=== PATIENT | male | born 1990 | race Caucasian/White ===

== ENCOUNTER 2017-07-12 17:58 | Emergency (ER) | payer SELFPAY ==
[2017-07-12 18:13] VITALS: BP 150/64
[2017-07-12 18:23] LABS: BASOPHILS % 0.7 (0.0-1.5); EOSINOPHILS % 1.4 % (0.0-6.8); MEAN CORPUSCULAR HEMOGLOBIN 28.2 pg (28.0-34.0); MEAN CORPUSCULAR VOLUME 86.7 fl (80.0-100.0); MONOCYTES % 5.1 % (0.0-11.0); NEUTROPHILS # 5.9 # k/uL (1.4-7.7)
[2017-07-12 18:32] LABS: eGFR (African) > 60; eGFR (Non-African) > 60
[2017-07-12] MEDS ORDERED: GUAIFENESIN/CODEINE 10 ML S/F LIQUID DOSE CUP PO ONE (19:31)
--- NOTE | 2017-07-12 19:31 | Diagnostic Imaging Report ---
ANA HUTTON ([place]) - ER [facility] [address] [facility].[address] [address] Report Submission Date: Jul 12, 2017 7:21:53 PM SECURITY NURSE Patient Study Name: MONROE DUKES Date: Jul 12, 2017 6:31:46 PM SECURITY NURSE Modality Type: CR Gender: M Description: CHEST : 89 Institution: [facility] Physician: ANA HUTTON) - ER Chest, PA and lateral History: Cough Findings: The heart, lungs, pleura, mediastinum and bony thorax are normal. Impression: Normal. Electronically signed on Jul 12, 2017 7:21:53 PM SECURITY NURSE by: Nahum PATRICK
--- NOTE | 2017-07-12 19:35 | ED Physician Documentation ---
Upper Respiratory Symptoms - HISTORIAN Historian: patient - HPI Stated Complaint: Cough Chief Complaint: Cough/ Upper Respiratory Further Comments: yes (26 year old male patient presents with complaint of cough since January. States he moved into a trailer with black mold. states the coughing has become worse the past few weeks.) - ROS CONST/EYES: weakness CVS/RESP: none. denies: chest pain, shortness of breath, palpitations LYMPH: denies: leg swelling, rash, swollen glands, ankle swelling, other GI/: none NEURO/PSYCH: denies: fainting, dizziness MS/SKIN: denies: joint pain, rash - PAST HX Lung Disease: none PE Risk Factors: none Allergies/Adverse Reactions: Allergies Allergy/AdvReac Type Severity Reaction Status Date / Time No Known Drug Allergies Allergy Verified 07/12/17 19:48 Home Medications: Ambulatory Orders Medication Instructions Recorded Benzonatate [Tessalon Perles] 200 mg PO TID PRN #42 capsule 07/12/17 - SOCIAL HX Smoking History: cigarettes - FAMILY HX Family History: denies: none - VITAL SIGNS Vital Signs: Vital Signs Temp Pulse Resp BP Pulse Ox 97.4 F L 98 H 18 150/64 99 07/12/17 17:58 07/12/17 19:52 07/12/17 19:52 07/12/17 19:52 07/12/17 17:58 - REVIEWED ASSESSMENTS Nursing Assessment Reviewed: Yes Vitals Reviewed: Yes ED Results Lab/Radiology - Lab Results Lab Results: Lab Results 07/12/17 07/12/17 18:15 18:15 WBC 8.70 K/ul K/ul (4.00-12.00) RBC 5.21 M/ul H M/ul (3.90-5.20) Hgb 14.7 g/dL g/dL (12.0-18.0) Hct 45.2 % % (37.0-53.0) MCV 86.7 fl fl (80.0-100.0) MCH 28.2 pg pg (28.0-34.0) MCHC 32.5 g/dL g/dL (30.0-36.0) RDW 13.0 % % (11.3-14.3) Plt Count 203 K/mm3 K/mm3 (130-400) Neut % (Auto) 68.1 % % (39.0-79.0) Lymph % (Auto) 23.6 % % (16.0-50.0) Emanuel % (Auto) 5.1 % % (0.0-11.0) Eos % (Auto) 1.4 % % (0.0-6.8) Baso % (Auto) 0.7 (0.0-1.5) Neut # (Auto) 5.9 # k/uL # k/uL (1.4-7.7) Lymph # (Auto) 2.0 # k/uL # k/uL (0.6-4.0) Emanuel # (Auto) 0.4 # k/uL # k/uL (0.0-0.9) Eos # (Auto) 0.1 # k/uL # k/uL (0.0-0.6) Baso # (Auto) 0.1 # k/uL # k/uL (0.0-0.5) Reactive Lymphs % 1.2 % % (0.0-5.0) Reactive Lymphs # 0.1 # k/uL # k/uL (0.0-0.8) Sodium 142 mmol/L mmol/L (136-145) Potassium 3.2 mmol/L L mmol/L (3.5-5.1) Chloride 103 mmol/L mmol/L (98-107) Carbon Dioxide 23 mmol/L mmol/L (22-30) BUN 16 mg/dL mg/dL (9-20) Creatinine 0.80 mg/dL mg/dL (0.66-1.25) Estimated Creat Clear 224 Est GFR ( Amer) > 60 (60 - ) Est GFR (Non-Af Amer) > 60 (60 - ) Glucose 105 mg/dL mg/dL (74-106) Calcium 9.2 mg/dL mg/dL (8.4-10.2) - Orders Orders: ED Orders Category Date Time Status CHEST 2 VIEW [CHEST P.A.&LAT 2 VIEWS] [RAD] Stat Exams 07/12/17 Completed BMP Stat Lab 07/12/17 18:15 Completed CBC/PLATELET/DIFF Stat Lab 07/12/17 18:15 Completed Guaifenesin/Codeine Phosphate [Robitussin AC] Med 07/12/17 19:31 Discontinued 10 ml PO NOW ONE Upper Respiratory Symptoms - EXAM General Appearance: no acute distress, alert EENT: eyes nml inspection, nml ENT inspection, lids & conjunct. nml, PERRL, ear nml, nose nml, pharynx nml, airway nml Respiratory: no resp. distress, breath sounds nml, no pain on inspiration, speaks full sentences, no pleuritic chest pain Abdomen: non-tender, no organomegaly, nml bowel sounds, no distention CVS: reg rate & rhythm, heart sounds normal, equal pulses, no murmur, no gallop , PMI nml, no JVD, no friction rub, 24 Skin: color nml, no rash, warm,dry, other (xerosis noted on face) Extremities: non-tender, normal range of motion, no evidence of injury, no edema , J, [employer] Neuro/Psych: oriented x3, neuro intact, mood/affect nml, CN's nml as tested Discharge Clincal Impression: Cough Prescriptions: Benzonatate [Tessalon Perles] 200 mg PO TID PRN #42 capsule PRN Reason: Cough Referrals: Primary Doctor,No [Primary Care Provider] - 2 Days Additional Instructions: food and nutrition services supervisor your prescription in the morning Start a daily allergy medication such as Loratadine. Follow up with your primary care doctor if you cough gets worse and becomes productive with Fever. Stop Smoking Condition: Stable Disposition: 01 HOME, SELF-CARE Decision to Admit: NO Decision Time: 19:35
== END 2017-07-12 19:50 | disposition home or self-care (01) ==
LOC: ED 17:58
DX: R05 Cough (principal); F17.210 Nicotine dependence, cigarettes, uncomplicated
CPT/HCPCS: 36415; 71020; 80048; 85025; 99282